=== PATIENT | female | born 1960 | race Caucasian/White ===

== ENCOUNTER 2019-09-08 22:09 | Emergency (ER) | payer MEDICARE, SELFPAY ==
[2019-09-08 22:09] VITALS: BP 136/72; PULSE 75; RESP 16; TEMP 36.6; BMI 37.0
--- NOTE | 2019-09-08 22:15 | ED.RN ---
CALLED FOR EKG, PULLED OLD EKGS FOR
--- NOTE | 2019-09-08 22:23 | EKG12_ITS ---
Test Reason : CP Blood Pressure : / mmHG Vent. Rate : 068 BPM Atrial Rate : 068 BPM P-R Int : 158 ms QRS Dur : 082 ms QT Int : 402 ms P-R-T Axes : 051 046 046 degrees QTc Int : 427 ms Normal sinus rhythm Normal ECG Confirmed by SANDRA WARNER, FITO ([id number]), science editor MICHAEL CAPONE ([id number]) on 09/10/2019 11:21:02 AM Referred By: DR DUNN Confirmed By:FITO FLORES MD
--- NOTE | 2019-09-08 22:25 | RAD_ITS ---
STUDY: X-RAY CHEST REASON FOR EXAM: Female, 59 years old. Jaw tightness. Heart fluttering. TECHNIQUE: Frontal chest. COMPARISON: None. FINDINGS: No apparent pneumothorax, pneumonia, pleural effusion, or edema. Cardiac silhouette, vianney and mediastinal contours are within normal limits. No acute osseous abnormality. No evidence of free air under the diaphragm. Lumbar spine fusion hardware partially visible. RAD/Chest 1 View (Portable) IMPRESSION: Negative chest radiograph. Electronically Signed: Ovidio Skinner, at 22:41 EST Tel , Service support ,
--- NOTE | 2019-09-08 22:36 | ED.DCSUM_ITS ---
History of Present Illness Chief Complaint: Chest Pain Informant: Patient Onset: Days Context: Gradual Onset Timing: Intermittent Current Severity: Moderate Maximum Severity: Moderate Narrative: The patient is a 59-year-old female with medical history significant for atrial fibrillation who presents to the emergency department with chest pain, palpitations, neck tightness. She states over the past 3 days, she has been having chest tightness especially when she exerts herself. She states at times, it will feel like it radiates up into her neck. She feels like her pain has been waxing and waning. She does describe some nausea with it. The patient is on flecainide. She denies any fevers or chills. She states she has had a remote stress test but no history of coronary vascular disease. Prior similar symptoms: No Recent Illness/Hospitalization: No Past Medical History - Allergies and Home Meds Allergies/Adverse Reactions: Allergies No Known Allergies Allergy (Verified 03/05/15 19:08) Primary Care Physician: Chun Santana DO [Primary Care Provider] - Prior records reviewed: Yes Past Medical History: - - Atrial fibrillation, hypertension Surgical History: noncontributory Smoking Status: Never smoker Review of Systems General: Denies: Chills, Fever, Sweats Eyes: Denies: Visual changes - bilaterally, Diplopia ENT: Denies: Rhinorrhea, Sore throat Cardiovascular: Reports: Chest pain. Denies: Palpitations Respiratory: Reports: Dyspnea. Denies: Cough, Dyspnea on exertion Gastrointestinal: Denies: Abdominal pain, Nausea, Vomiting, Diarrhea, Melena, Hematochezia Genitourinary: Denies: Dysuria, Hematuria, Frequency Musculoskeletal: Denies: Back pain, Extremity Pain Skin: Denies: Rash, Wounds Neurological: Denies: Headache, Weakness, Numbness Physical Exam Vital Signs/Narrative: Vital Signs Temp Pulse Resp BP 09/08/19 22:09 98 F 75 16 136/72 H Inital Vital Signs reviewed: Yes General: Well nourished, Well developed, No Acute Distress Head: Normocephalic, Atraumatic Eyes: Perrl, EOMI ENT: Moist mucous membranes, No rhinorrhea Neck: Supple, Nontender Cardiovascular: Regular rate, Regular rhythm, No murmurs Respiratory: No distress, CTA bilaterally, Chest nontender Abdomen: Soft, Nontender, Nondistended, Normal bowel sounds Back: Nontender, Normal Inspection Extremities: Nontender, No edema Skin: Normal color, No rash Neurological: Alert, Oriented x3, Cranial nerves II-XII grossly intact, Normal Strength, Normal Sensation Psychological: Normal affect, Normal Mood Diagnostic/Tx/Re-eval Chest X-Ray - ED: 1 View, Normal, Heart, Lungs, Mediastinum - Rhythm Strip Rhythm Strip: Sinus Rhythm Rate: 80 Ectopy: PVC(s), PAC(s) - EKG Initial EKG Interpretation: Sinus Rhythm, No Acute Injury Pattern Prior: Unchanged - Medical Decision Making The patient presents to the emergency department with intermittent chest pain made worse with exertion. She is felt a fluttering and tightness in her neck. EKG was obtained which showed sinus rhythm without acute ischemia. Chest x-ray was unremarkable. Cardiac enzymes were negative. On reevaluation, the patient is pain-free. Her story is suspicious for cardiac disease. She says of exertional dyspnea and shortness of breath. I do feel that she would benefit from observation for cardiac rule out. The patient was discussed with the hospitalist. The impression 1. Chest pain The patient had been discussed with the hospitalist and ready to be admitted. However, her stay was in observation. She states that she cannot pay for this. I did discuss with her the benefits of staying. However, she states that she c annot stay. The patient will be signed out AGAINST MEDICAL ADVICE, but will return with any worsening symptoms. ED Disposition - Plan for ED Patient: Instructions: CHEST PAIN, Uncertain Cause Referrals: Chun Santana DO [Primary Care Provider] -
[2019-09-08 22:39] VITALS: BP 117/65; PULSE 64; RESP 13; O2SAT 96
[2019-09-08 22:41] VITALS: O2SAT 99
[2019-09-08 22:48] LABS: Absolute Lymphocyte Count 2.66 X10^3/uL (0.83-4.51); Absolute Neutrophil Count 4.2 X10^3/uL (2.0-7.7); Basophil# 0.03 X10^3/uL; Basophil% 0.4 % (0-1); Eosinophil# 0.43 X10^3/uL; Eosinophils% 5.2 % (0-5); Hematocrit 32.7 % (37-47); Hemoglobin 10.2 g/dL (12.0-15.0); Lymphocyte # 2.66 X10^3/ul (4.0); Lymphocyte % 31.9 % (19-41); Mean Corp Hgb Conc 31.2 g/dL (32-36); Mean Corpuscular Hgb 26.8 pg (27.0-32.0); Mean Corpuscular Volume 85.8 fL (81-99); Mean Platelet Vol. 9.5 fl (6.2-12.0); Monocyte# 1.01 X10^3/uL; Monocyte% 12.1 % (0-10); NRBC Flagged by Analyzer 0 % (0-5); Neutrophil # 4.17 X10^3/uL (2.7-7.7); Platelet Count 231 K/mm3 (150-450); RBC Distribution Width CV 13.2 % (11.6-14.6); RBC Distribution Width SD 41.4 fl (35.1-43.9); Red Blood Count 3.81 M/mm3 (4.2-5.4); White Blood Count 8.3 K/mm3 (4.4-11.0)
[2019-09-08] MEDS: 0.9% Normal Saline 1,000 ML 150 ML IV (22:49)
[2019-09-08 23:04] LABS: Anion Gap 7 (5-15); BUN 31 mg/dL (7-18); BUN/Creat Ratio 32.7 RATIO (10-20); Calcium,Total 8.5 mg/dL (8.5-10.1); Chloride 108 mmol/L (98-107); Creatinine, Serum 0.95 mg/dL (0.55-1.02); EST Glomerular Filtration Rate 64 mL/min (>60); Est Glom Filt Rate - Afr Amer 78 mL/min (>60); Estimated Creatinine Clearance 55.06 ml/min; Glucose 91 mg/dL (74-106); Magnesium 2.2 mg/dL (1.6-2.6); Potassium 3.9 mmol/L (3.5-5.1); Sodium Level 142 mmol/L (136-145)
--- NOTE | 2019-09-08 23:17 | PCM.HP.STD ---
History of Present Illness The patient is a 59 year old F [] Past Medical History Allergies No Known Allergies Allergy (Verified 03/05/15 19:08) Home Medications: Ambulatory Orders Medication Instructions Recorded Aspirin [Aspirin, Baby] 325 mg PO DAILY@0800 11/14/13 Pindolol [Pindolol (Beta Fermin)] 5 mg PO DAILY 11/14/13 Fluoxetine [Prozac] 20 mg PO DAILY 03/05/15 Pravastatin Sodium 09/08/19 buPROPion tablets [Wellbutrin 100 mg PO DAILY 09/08/19 tablets] Surgical History: noncontributory Smoking Status: Former smoker - Physical Exam Vitals/I&O's: Vital Signs Temp Pulse Resp BP Pulse Ox 98 F 64 13 117/65 99 09/08/19 22:09 09/08/19 22:39 09/08/19 22:39 09/08/19 22:39 09/08/19 22:41 Oxygen Delivery Method Room Air Weight: 98 kg Body Mass Index (BMI) 37.0 Laboratory Results 09/08/19 22:35: WBC 8.3, RBC 3.81 L, Hgb 10.2 L, Hct 32.7 L, MCV 85.8, MCH 26.8 L, MCHC 31.2 L, RDW Std Deviation 41.4, RDW Coeff of Grant 13.2, Plt Count 231, MPV 9.5, Immature Gran % (Auto) 0.400, Neut % (Auto) 50.0, Lymph % (Auto) 31.9, Morehouse % (Auto) 12.1 H, Eos % (Auto) 5.2 H, Baso % (Auto) 0.4, Absolute Neuts (auto) 4.2, Absolute Lymphs (auto) 2.66, Nucleated RBC % 0 09/08/19 22:35: Sodium 142, Potassium 3.9, Chloride 108 H, Carbon Dioxide 27.0, Anion Gap 7, BUN 31 H, Creatinine 0.95, Estim Creat Clear Calc 55.06, Est GFR (MDRD) Af Amer 78, Est GFR (MDRD) Non-Af 64, BUN/Creatinine Ratio 32.7 H, Glucose 91, Calcium 8.5, Magnesium 2.2, Troponin I < 0.015 Current Medications Sodium Chloride () 1,000 mls @ 150 mls/hr IV .[id number] [facility] Last Admin: 09/08/19 22:49 Dose: 150 mls/hr Documented by:
[2019-09-08 23:40] VITALS: BP 111/72; PULSE 72; RESP 18; O2SAT 97
--- NOTE | 2019-09-08 23:52 | ED.RN ---
pt leaving [facility], states that they can not afford a hospital stay.
[2019-09-08 23:53] VITALS: BP 111/72; PULSE 71; RESP 21; O2SAT 97
== END 2019-09-08 23:59 | disposition home or self-care (01) ==
PROVIDERS: Emergency Provider Emergency Medicine; Family Provider Student in an Organized Health Care Education/Training Program; PCP Student in an Organized Health Care Education/Training Program
DX: R07.9 Chest pain, unspecified (principal); I10 Essential (primary) hypertension; I48.91 Unspecified atrial fibrillation
CPT/HCPCS: 71045; 80048; 83735; 84484; 85025; 93005; 96360; 99285; J7030; A4216

== ENCOUNTER 2021-02-17 19:02 | Emergency (ER) | payer MEDICARE, SELFPAY ==
[2021-02-17 19:03] VITALS: BP 140/72; PULSE 70; RESP 18; TEMP 36.6; O2SAT 99; BMI 33.5
--- NOTE | 2021-02-17 19:06 | RAD_ITS ---
STUDY: X-RAY - CERVICAL SPINE REASON FOR EXAM: Female, 60 years old. PAIN TECHNIQUE: 3 view(s) of the cervical spine were obtained. COMPARISON: None FINDINGS: Normal anterior atlantoaxial articulation. Normal odontoid process. There is straightening of the normal cervical lordosis. No demonstrated fracture. Vertebral bodies are well maintained. 2 mm retrolisthesis at C5-6, associated with mild disc space narrowing. Mild disc space narrowing at C4-5 and C6-7. The soft tissue structures are unremarkable. RAD/Cerv Spine 2 or 3 Views IMPRESSION: 1. No evidence of cervical trauma. 2. Mild C5-6 retrolisthesis. 3. Mild degenerative changes of the cervical spine. Electronically Signed: Ora Daily MD at 20:21 EDT Tel , Service support ,
--- NOTE | 2021-02-17 19:06 | RAD_ITS ---
STUDY: X-RAY - RIGHT SHOULDER REASON FOR EXAM: Female, 60 years old. PAIN TECHNIQUE: 4 view(s) of the shoulder. COMPARISON: None. FINDINGS: Normal glenohumeral articulation. Normal acromioclavicular joint. Normal acromion. Normal humeral head and visualized proximal humerus. The soft tissue structures are unremarkable. Normal visualized pulmonary apex. RAD/Shoulder min 2 Views IMPRESSION: Normal x-ray examination of the shoulder. Electronically Signed: Ora Daily MD at 20:18 EDT Tel , Service support ,
--- NOTE | 2021-02-17 20:00 | EDS_ITS ---
HPI History of Present Illness Chief Complaint: Upper Extremity Injury Informant: patient Onset/Context/Timing Onset: Today Context: Gradual Onset Timing: Continuous Quality of Pain: Aching and Throbbing Current Severity: Moderate Maximum Severity: Moderate Associated Symptoms Associated Symptoms: Negative for Parasthesia and Weakness Narrative Narrative: The patient is a 60-year-old female who presents to the emergency department with upper back pain. The patient was in her normal state of health. She states that she was trying to lead her horse. She states the horse pulled and she felt a little tightness in her upper back. She states since then, the pain is gotten worse. She states she feels like her neck is tight and is hard to move. She denies any numbness or tingling in the hand. She did not fall. S he did not strike her head. Prior similar symptoms: No Recent Illness/Hospitalization: No PFSH PFSH Home Medications aspirin 325 mg PO DAILY@0800 11/14/13 [History Last Taken Unknown] pindolol 5 mg PO DAILY 11/14/13 [History Last Taken Unknown] fluoxetine 20 mg PO DAILY 03/05/15 [History Last Taken Unknown] bupropion HCl 100 mg PO DAILY 09/08/19 [History Last Taken Unknown] pravastatin 09/08/19 [History Last Taken Unknown] cyclobenzaprine 10 mg PO TID PRN #20 tablet 02/17/21 [Rx Last Taken Unknown] naproxen 500 mg PO BID #20 tab 02/17/21 [Rx Last Taken Unknown] Allergy/AdvReac Type Severity Reaction Status Date / Time No Known Allergies Allergy Verified 02/17/21 19:05 Social History Smoking Status: Former smoker ROS ROS ED Constitutional Constitutional ED: Denies chills or fever(s) Eyes Eyes: Denies blurry vision or change in vision ENT ENT ED: Denies ear pain or sore throat Cardiovascular Cardiovascular: Denies chest pain or palpitations Respiratory/Chest Respiratory/Chest: Denies cough, dyspnea or dyspnea on exertion Gastrointestinal Gastrointestinal: Denies abdominal pain, nausea or vomiting Genitourinary Genitourinary ED: Denies dysuria or urinary frequency Musculoskeletal Musculoskeletal: Reports myalgias and neck pain; Denies arthralgias Integumentary Denies rash Neurologic Neurologic: Denies headache(s) or paresthesias Psychiatric Psychiatric: Denies anxiety or depression Endocrine Endocrinology: Denies polydipsia or polyuria Allergic/Immunologic Allergic/Immunologic ED: Denies urticaria EXAM Physical Exam Const Vital Signs: 02/17/21 19:03 Temperature 97.9 F Temperature Source Temporal Pulse Rate 70 Respiratory Rate 8 L Blood Pressure 140/72 H Blood Pressure Mean 94 Pulse Ox 99 Oxygen Delivery Method Room Air Positive well nourished and well developed General Appearance ED: well developed HEENT Reports normocephalic, head/scalp atraumatic and moist mucous membranes Eyes PERRL and EOMs intact bilaterally Neck no lymphadenopathy and supple Neck Narrative: Tenderness in the right paraspinal musculature. No midline tenderness. No step-off. Mild tenderness in the trapezius muscle. No pain in the shoulder with passive range of motion. Normal axillary nerve. General: tenderness Chest Wall inspection of chest normal Resp normal respiratory effort and clear to auscultation bilaterally Cardio regular rate, regular rhythm and no murmurs GI normal to inspection, nondistended, normoactive bowel sounds Palpation: Negative for tender, guarding or rebound tenderness present Back/Spine no CVA tenderness Cervical Spine: Negative for cervical spine tenderness Thoracic Spine / Upper Back: Negative for thoracic spinal tenderness Extremity normal to inspection General Extremety ED: Negative for tenderness Neuro oriented x3 and CN's II-XII intact bilaterally Neuro Narrative: No focal deficits appreciated. Sensorium / Orientation: alert Psych mental status grossly normal Skin no rashes or lesions noted, no wounds and skin turgor normal MDM MDM MDM Narrative Medical decision making narrative: The patient symptoms do seem muscular in nature. However, given her age we did obtain plain films. X-rays of the cervical spine and of the shoulder were obtained. These reviewed by both myself and the radiologist. There is no evidence of fracture dislocation. She does h ave some degenerative change. She did not want analgesics for her pain. She was given Toradol and Norflex with some improvement. At this point, I will treat the patient conservatively with antispasmodics and anti-inflammatories. She is comfortable with this plan of care. Impression 1. Right cervical and trapezius strain Discharge Plan Triage Chief Complaint: Upper Extremity Injury ED Provider: Enrique Mata Dx/Rx/DC Orders Instructions: ED Neck Sprain or Strain Prescriptions: New cyclobenzaprine [cyclobenzaprine] 10 MG tablet 10 mg PO TID PRN (Reason: Muscle Spasm) Qty: 20 RF: 0 naproxen 500 MG tablet 500 mg PO BID Qty: 20 RF: 0 No Action pindolol 10 MG tablet 5 mg PO DAILY RF: 0 aspirin 81 MG tablet,chewable 325 mg PO DAILY@0800 RF: 0 fluoxetine 20 MG capsule 20 mg PO DAILY RF: 0 pravastatin 40 MG tablet RF: 0 bupropion HCl 100 MG tablet 100 mg PO DAILY RF: 0 Primary Care Provider: Chun Santana Referrals: Chun Santana DO [Primary Care Provider] -
[2021-02-17] MEDS: Ketorolac 60 MG/2 ML Vial IM (20:19)
[2021-02-17] MEDS: Orphenadrine 60 MG/2 ML Ampul IM (20:21)
== END 2021-02-17 21:14 | disposition home or self-care (01) ==
LOC: ED 20:02
PROVIDERS: Emergency Provider Emergency Medicine; PCP Student in an Organized Health Care Education/Training Program
DX: S29.012A Strain of muscle and tendon of back wall of thorax, initial encounter (principal); Z87.891 Personal history of nicotine dependence; X58.XXXA Exposure to other specified factors, initial encounter
CPT/HCPCS: 72040; 73030; 96372; 99282

== ENCOUNTER 2021-05-31 11:08 | Emergency (ER) | payer MEDICARE, SELFPAY ==
[2021-05-31 11:09] VITALS: BP 83/53; PULSE 73; RESP 18; TEMP 36.6; O2SAT 98; BMI 33.5
[2021-05-31 11:12] VITALS: BP 83/53; PULSE 73; RESP 18; TEMP 36.6; O2SAT 98
--- NOTE | 2021-05-31 11:33 | EX.ED.DYSGE1 ---
HPI History of Present Illness Chief Complaint: Syncope Informant: patient Narrative Narrative: 60-year-old female presented to the emergency department with a near syncopal event. Patient states that she is coming down the stairs began to have the urge that she needed to have a bowel movement. She states she got lightheaded sweaty tingling in her arms and hands. She eventually had a bowel movement and her symptoms improved. She states that past couple days she has not felt very well. She has developed a slight cough with some occasional yellow sputum. No reported fevers. She spent most of the day in bed yesterday did not eat or drink very much. Patient is unvaccinated for [facility] Medical History Atrial fibrillation High cholesterol Home Medications aspirin 325 mg PO DAILY@0800 11/14/13 [History Last Taken Unknown] pindolol 5 mg PO DAILY 11/14/13 [History Last Taken Unknown] fluoxetine 20 mg PO DAILY 03/05/15 [History Last Taken Unknown] bupropion HCl 100 mg PO DAILY 09/08/19 [History Last Taken Unknown] pravastatin 09/08/19 [History Last Taken Unknown] cyclobenzaprine 10 mg PO TID PRN #20 tablet 02/17/21 [Rx Last Taken Unknown] naproxen 500 mg PO BID #20 tab 02/17/21 [Rx Last Taken Unknown] Allergy/AdvReac Type Severity Reaction Status Date / Time No Known Allergies Allergy Verified 05/31/21 11:11 Social History (Updated 05/31/21 @ 11:[address] Drew Salter DO) Smoking Status: Former smoker substance use type: does not use ROS ROS ED ROS Narrative Near syncope tingling in arms diaphoresis Constitutional Constitutional ED: Denies chills or weight loss Eyes Eyes: Denies change in vision or diplopia ENT ENT ED: Denies ear pain, rhinorrhea or sore throat Cardiovascular Cardiovascular: Denies chest pain, orthopnea, palpitations or racing heartbeat Respiratory/Chest Respiratory/Chest: Reports cough and sputum; Denies dyspnea or orthopnea Gastrointestinal Gastrointestinal: Denies abdominal pain, diarrhea, nausea or vomiting Genitourinary Genitourinary ED: Denies dysuria, hematuria or urinary frequency Musculoskeletal Musculoskeletal: Denies arthralgias or myalgias Integumentary Denies abscess or rash Neurologic Neurologic: Denies headache(s) or weakness Psychiatric Psychiatric: Denies anxiety, depression, suicidal ideation or suicidal thoughts Endocrine Endocrinology: Denies polydipsia, polyphagia or polyuria Allergic/Immunologic Allergic/Immunologic ED: Denies mouth swelling, tongue swelling or urticaria EXAM Physical Exam Const Vital Signs: 05/31/21 11:09 05/31/21 11:12 05/31/21 11:20 Temperature 98 F 98 F Temperature Source Temporal Temporal Pulse Rate 73 73 Respiratory Rate 18 18 Respiratory Effort Non-Labored Short of Breath Respiratory Pattern Normal Blood Pressure 83/53 L 83/53 L Blood Pressure Mean 63 63 Pulse Ox 98 98 Oxygen Delivery Method Room Air Room Air 05/31/21 12:16 Temperature Temperature Source Pulse Rate 66 Respiratory Rate 18 Respiratory Effort Respiratory Pattern Blood Pressure 125/81 H Blood Pressure Mean 95 Pulse Ox 96 Oxygen Delivery Method Room Air Positive well nourished and well developed General Appearance ED: well developed HEENT Reports normocephalic, head/scalp atraumatic and moist mucous membranes Eyes PERRL and EOMs intact bilaterally Neck no lymphadenopathy, supple and no JVD Resp normal respiratory effort and clear to auscultation bilaterally Cardio regular rate, regular rhythm and no murmurs GI normal to inspection, nondistended, normoactive bowel sounds and non-tender Palpation: soft Back/Spine no CVA tenderness and normal ROM Extremity normal to inspection General Extremety ED: Negative for edema General Extremity: Negative for edema Neuro oriented x3 and CN's II-XII intact bilaterally Sensorium / Orientation: alert Motor Exam: strength 5/5 throughout Psych mental status grossly normal Mood & Affect: Negative for depressed or tearful Skin no rashes or lesions noted and no wounds MDM MDM MDM Narrative Medical decision making narrative: My impression of the chest x-ray is no acute process. Patient received a liter of IV fluids. Her Covid test is positive. Patient will be referred for monoclonal antibodies as she is 60 years old with a history of atrial fibrillation. Patient return if worsening or concerns EKG Initial EKG: Attestation: I personally reviewed and interpreted this EKG as follows: Comments: EKG demonstrates a normal sinus rhythm at a rate of 69 bpm. Discharge Plan Triage Chief Complaint: Syncope ED Provider: Drew Salter Dx/Rx/DC Orders Clinical Impression: Vasovagal near syncope, COVID-19 Instructions: Coronavirus Disease 2019 (COVID-19): Caring for Yourself or Others, ED Near-Fainting- Vagal Reaction Prescriptions: No Action pindolol 10 MG tablet 5 mg PO DAILY RF: 0 aspirin 81 MG tablet,chewable 325 mg PO DAILY@0800 RF: 0 fluoxetine 20 MG capsule 20 mg PO DAILY RF: 0 pravastatin 40 MG tablet RF: 0 bupropion HCl 100 MG tablet 100 mg PO DAILY RF: 0 cyclobenzaprine [cyclobenzaprine] 10 MG tablet 10 mg PO TID PRN (Reason: Muscle Spasm) Qty: 20 RF: 0 naproxen 500 MG tablet 500 mg PO BID Qty: 20 RF: 0 Other Ambulatory Orders: COVID Outpatient Monoclonal Antibody Referral (Routine) Location: None Selected Ordered By: Dr. Drew Salter Primary Care Provider: Chun Santana Referrals: Chun Santana DO [Primary Care Provider] - As Needed Disposition Disposition: Home, Self Care
--- NOTE | 2021-05-31 11:38 | EKG12_ITS ---
Test Reason : Blood Pressure : / mmHG Vent. Rate : 069 BPM Atrial Rate : 069 BPM P-R Int : 166 ms QRS Dur : 078 ms QT Int : 416 ms P-R-T Axes : 020 058 032 degrees QTc Int : 445 ms Normal sinus rhythm Low voltage QRS T wave abnormality, consider anterior ischemia Abnormal ECG Confirmed by PAUL WARNER, ZACK ([id number]), content editor VIANCA RICE ([id number]) on 06/01/2021 10:13:56 AM Referred By: KATHERINE Confirmed By:ZACK MILLER MD
[2021-05-31] MEDS: 0.9% Normal Saline 1,000 ML 1000 ML IV (11:46)
[2021-05-31 12:16] VITALS: BP 125/81; PULSE 66; RESP 18; O2SAT 96
--- NOTE | 2021-05-31 12:21 | RAD_ITS ---
STUDY: X-RAY CHEST REASON FOR EXAM: Female, 60 years old. Cough TECHNIQUE: Single AP portable view of the chest. COMPARISON: Comparison is made with prior study dated 09/08/2019. FINDINGS: EKG electrodes are seen. Hyperinflation. The lungs are clear. There is no demonstrated pleural abnormality. Normal size heart. Normal mediastinum and vianney. Normal visualized pulmonary arteries. Normal visualized aortic arch and descending thoracic aorta. Screw and bel fixation of the lower thoracic and lumbar spine. Normal visualized ribs, clavicles, and shoulders. Small hiatal hernia. RAD/Chest 1 View (Portable) IMPRESSION: Hyperinflation. The lungs are clear. Electronically Signed: Cayden Marroquin MD at 12:54 EDT , Service support ,
[2021-05-31 13:40] VITALS: BP 148/72; PULSE 90; RESP 20; O2SAT 95
== END 2021-05-31 13:43 | disposition home or self-care (01) ==
PROVIDERS: Emergency Provider Emergency Medicine; PCP Student in an Organized Health Care Education/Training Program
DX: R55 Syncope and collapse (principal); U07.1 COVID-19; Z87.891 Personal history of nicotine dependence; E78.00 Pure hypercholesterolemia, unspecified; I48.91 Unspecified atrial fibrillation
CPT/HCPCS: 71045; 87426; 93005; 96360; 99284; J7030; A4216

== ENCOUNTER 2021-10-18 08:14 | Emergency (ER) | payer MEDICARE, SELFPAY ==
[2021-10-18 08:16] VITALS: BP 127/71; PULSE 74; RESP 16; TEMP 35.7; O2SAT 99; BMI 34.9
--- NOTE | 2021-10-18 08:29 | EDS_ITS ---
HPI History of Present Illness Chief Complaint: Chest Other Detail of Chief Complaint: Right posterior lateral rib cage pain Informant: patient Onset/Context/Timing Onset: Today and Hours Activity at onset: gradual Timing: Continuous Quality: Positive for Sharp and Stabbing Current Severity: Mild Maximum Severity: Moderate Worsened By: Movement of Torso and Breathing Relieved By: Remaining Still Associated Symptoms: Negative for Nausea, Vomiting, Diaphoresis, Dyspnea, Cough, Fever, Lightheadedness, Acid Reflux and Palpitations Narrative Narrative: 61-year-old female history of A. fib and high cholesterol. States she twisted yesterday and this morning she has had right posterior lateral rib cage pain. Denies any falls or trauma. No history of prior DVT or PE. No recent risk factors. No travel, surgery nor hospitalization. No hemoptysis. Hurts more with movement and deep breathing. She denies any shortness of breath. Prior Similar Symptoms: Yes Recent Illness/Hospitalization: No PE Risk Factors: Negative for Recent Travel/Surgery, Recent Immobilization, Prior DVT or PE, Cancer and OCP + Smoking + >/=35 TAD Risk Factors: Negative for Marfan's Syndrome PFSH [facility] Medical History Atrial fibrillation High cholesterol Home Medications aspirin 325 mg PO DAILY@0800 11/14/13 [History Last Taken Unknown] pindolol 5 mg PO DAILY 11/14/13 [History Last Taken Unknown] fluoxetine 20 mg PO DAILY 03/05/15 [History Last Taken Unknown] bupropion HCl 100 mg PO DAILY 09/08/19 [History Last Taken Unknown] pravastatin 09/08/19 [History Last Taken Unknown] cyclobenzaprine 10 mg PO TID PRN #20 tablet 02/17/21 [Rx Last Taken Unknown] naproxen 500 mg PO BID #20 tab 02/17/21 [Rx Last Taken Unknown] Allergy/AdvReac Type Severity Reaction Status Date / Time acetaminophen [From Vicodin] AdvReac Upset Verified 10/18/21 08:15 Stomach codeine AdvReac Upset Verified 10/18/21 08:15 Stomach hydrocodone [From Vicodin] AdvReac Upset Verified 10/18/21 08:15 Stomach meperidine [From Demerol] AdvReac Upset Verified 10/18/21 08:15 Stomach Social History Smoking Status: Former smoker substance use type: does not use ROS ROS ED ROS Narrative Denies recent illness. No cough no shortness of breath. Review of Systems ROS Unobtainable: Denies due to encephalopathy Constitutional Constitutional ED: Denies fever(s) or subjective Eyes Eyes: Denies none or change in vision ENT ENT ED: Denies ear pain Cardiovascular Cardiovascular: Denies as per HPI, chest pain or palpitations Respiratory/Chest Respiratory/Chest: Denies cough or dyspnea Gastrointestinal Gastrointestinal: Denies abdominal pain, diarrhea, nausea or vomiting Genitourinary Genitourinary ED: Denies dysuria or hematuria Musculoskeletal Musculoskeletal: Denies arthralgias or myalgias Integumentary Denies rash Neurologic Neurologic: Denies headache(s) Psychiatric Psychiatric: Denies depression Endocrine Endocrinology: Denies polyuria Hematologic/Lymphatic Hematologic/Lymphatic: Denies easy bruising Allergic/Immunologic Allergic/Immunologic ED: Denies urticaria EXAM Physical Exam Narrative Exam Narrative: -year-old female no acute distress vital signs stable afebrile. Pulse ox 9 9% on room air no signs hypoxia. H EENT exam unremarkable. Neck nontender no lymphadenopathy. Lungs clear to auscultation bilaterally. Heart regular rhythm no murmur. Anterior chest wall nontender. Right lateral rib cage tenderness primarily in intercostals. No crepitance or subcu air. No rash nor bruising. No bony deformity. Left posterior rib cage nontender back otherwise nontender. Abdomen is soft and nontender. Normal bowel sounds no peritoneal signs. Moving all 4 extremities. Neurovascular intact. Calves are nontender without edema. Neurologically she is awake and alert with no focal motor deficits. Const Vital Signs: 10/18/21 08:16 10/18/21 11:17 Temperature 96.2 F L Temperature Source Temporal Pulse Rate 74 Respiratory Rate 16 Blood Pressure 127/71 H 177/100 H Blood Pressure Mean 89 125 Pulse Ox 99 Oxygen Delivery Method Room Air Positive well nourished and well developed; Negative for cachectic, contractures or unkempt General Appearance ED: well developed and NAD; Negative for unkempt, cachectic, contractures or pallor Nutritional Appearance: Negative for cachectic HEENT Reports moist mucous membranes normocephalic and atraumatic; Negative for trauma or tenderness Eyes PERRL and EOMs intact bilaterally Neck no lymphadenopathy, supple and no JVD General: Negative for tenderness Chest Wall inspection of chest normal and palpation of chest normal Chest Narrative: Right posterior rib cage tenderness. Normal appearance. No bruising. No crepitus. No subcu air. No bony deformity. No rash. Resp normal respiratory effort and clear to auscultation bilaterally Effort and Inspection: Negative for respiratory distress Auscultation: Negative for rales, rhonchi or wheezes Cardio regular rate, regular rhythm, S1 normal heart sound and S2 normal heart sound GI normal to inspection, nondistended, normoactive bowel sounds, soft to palpation, non-tender, non-distended and no masses Back/Spine no CVA tenderness and no thoracic nor lumbar tenderness General Back: Negative for CVA tenderness Cervical Spine: Negative for cervical spine tenderness Extremity normal to inspection General Extremety ED: Negative for edema or tenderness General Extremity: Negative for edema Neuro oriented x3 and CN's II-XII intact bilaterally Sensorium / Orientation: awake, alert, oriented to person, oriented to place and oriented to time Motor Exam: strength 5/5 throughout Psych mental status grossly normal Appearance: Negative for unkempt Attitude: No agitated Mood & Affect: Negative for depressed or tearful Skin no rashes or lesions noted and no wounds General Skin Exam: Negative for jaundice or pallor MDM MDM MDM Narrative Medical decision making narrative: 61-year-old with right posterior lateral rib cage pain after twisting. Consistent with a intercostal strain. X-ray being obtained to rule out rib fracture or pneumothorax. This does not sound cardiac. She has no risk factors no prior history of a PE. Repeat exam patient doing well at 11:50 AM. Will be discharged home. Tylenol Motrin for pain. Pillow to the area. If not improving follow-up. Radiography Chest X-Ray - ED: 2 View, Read by ED Physician, Heart, Lungs, Mediastinum, Bony Structures and No Acute Disease Diagnostic Testing: Clinical Impression(s) from Imaging Studies Chest X-Ray 10/18/21 08:58 IMPRESSION: No acute abnormality is seen. Electronically Signed: Cayden Marroquin MD at 9:24 EST , Service support , Acute chest x-ray, 2 views AP and lateral interpreted by myself shows no acute abnormality. Normal cardiac silhouette and mediastinum. Normal lungs. Normal bony structures. Discharge Plan Triage Chief Complaint: Chest Other ED Provider: Ronak Shelton Dx/Rx/DC Orders Clinical Impression: Chest wall muscle strain Instructions: ED Strain Chest Wall Prescriptions: No Action pindolol 10 MG tablet 5 mg PO DAILY RF: 0 aspirin 81 MG tablet,chewable 325 mg PO DAILY@0800 RF: 0 fluoxetine 20 MG capsule 20 mg PO DAILY RF: 0 pravastatin 40 MG tablet RF: 0 bupropion HCl 100 MG tablet 100 mg PO DAILY RF: 0 cyclobenzaprine [cyclobenzaprine] 10 MG tablet 10 mg PO TID PRN (Reason: Muscle Spasm) Qty: 20 RF: 0 naproxen 500 MG tablet 500 mg PO BID Qty: 20 RF: 0 Primary Care Provider: Chun Santana Referrals: Chun Santana DO [Primary Care Provider] - 1 Week if not improving Activity Restrictions/Additional Instructions: Motrin for pain and inflammation and Tylenol for pain. Ice to the area. Pillow to help brace the rib cage. Follow-up with your doctor if not improving. Disposition Disposition: Home, Self Care
[2021-10-18] MEDS: Ibuprofen 600 MG Tablet PO (08:45)
--- NOTE | 2021-10-18 08:58 | RAD_ITS ---
STUDY: X-RAY CHEST REASON FOR EXAM: Female, 61 years old. Right-sided rib pain following injury. TECHNIQUE: AP and lateral views of the chest. COMPARISON: Comparison is made with prior study dated 05/31/2021. FINDINGS: Elevation of the right hemidiaphragm. There is no demonstrated pleural abnormality. Normal size heart. Normal mediastinum and vianney. Normal visualized pulmonary arteries. Normal visualized aortic arch and descending thoracic aorta. There are degenerative changes of the visualized thoracic spine. Normal visualized ribs, clavicles, and shoulders. Moderate sized hiatal hernia. RAD/Chest PA and Lateral IMPRESSION: No acute abnormality is seen. Electronically Signed: Cayden Marroquin MD at 9:24 EST , Service support ,
[2021-10-18 11:17] VITALS: BP 177/100
[2021-10-18 12:19] VITALS: BP 118/69; PULSE 71; RESP 15; O2SAT 97
== END 2021-10-18 12:20 | disposition home or self-care (01) ==
PROVIDERS: Emergency Provider Emergency Medicine; PCP Student in an Organized Health Care Education/Training Program; Visit Provider Emergency Medicine
DX: S29.011A Strain of muscle and tendon of front wall of thorax, initial encounter (principal); I48.91 Unspecified atrial fibrillation; E78.00 Pure hypercholesterolemia, unspecified; Z87.891 Personal history of nicotine dependence; X50.1XXA Overexertion from prolonged static or awkward postures, initial encounter
CPT/HCPCS: 71046; 99282

== ENCOUNTER → 2022-04-24 | Outpatient (CLI) | payer MEDICARE, SELFPAY ==
[2022-04-24 13:04] VITALS: BP 112/55; RESP 14; TEMP 36.8; O2SAT 97; BMI 35.7
[2022-04-24] MEDS: 0.9% NaCl Peripheral Flush Adult/Peds IV (13:19)
[2022-04-24] MEDS: 0.9% NaCl IVPB Med Flush (250 mL) 15 ML IV (13:19)
[2022-04-24 14:26] VITALS: BP 111/64; PULSE 67; RESP 14; TEMP 36.4; O2SAT 100
== END | disposition home or self-care (01) ==
LOC: MEDOUTP 12:56
PROVIDERS: PCP Student in an Organized Health Care Education/Training Program; Referring Provider Internal Medicine Hematology & Oncology; Visit Provider Internal Medicine Hematology & Oncology
DX: D50.9 Iron deficiency anemia, unspecified (principal); Z78.9 Other specified health status
CPT/HCPCS: 96365; J1756; J7050; A4216

== ENCOUNTER → 2022-04-26 | Outpatient (CLI) | payer MEDICARE, SELFPAY ==
[2022-04-26] MEDS: 0.9% NaCl Peripheral Flush Adult/Peds IV (13:12)
[2022-04-26] MEDS: 0.9% NaCl IVPB Med Flush (250 mL) 15 ML IV (13:12)
[2022-04-26 13:19] VITALS: BP 116/53; PULSE 66; RESP 16; TEMP 36.3; O2SAT 99
== END | disposition home or self-care (01) ==
LOC: MEDOUTP 12:56
PROVIDERS: PCP Student in an Organized Health Care Education/Training Program; Referring Provider Internal Medicine Hematology & Oncology; Visit Provider Internal Medicine Hematology & Oncology
DX: D50.9 Iron deficiency anemia, unspecified (principal); Z78.9 Other specified health status
CPT/HCPCS: 96365; J1756; J7050; A4216

== ENCOUNTER → 2022-04-28 | Outpatient (CLI) | payer MEDICARE, SELFPAY ==
[2022-04-28] MEDS: 0.9% NaCl Peripheral Flush Adult/Peds IV (12:47)
[2022-04-28] MEDS: 0.9% NaCl IVPB Med Flush (250 mL) 15 ML IV (12:47)
[2022-04-28 12:55] VITALS: BP 110/66; PULSE 59; RESP 16; TEMP 36.2; O2SAT 97
== END | disposition home or self-care (01) ==
LOC: MEDOUTP 12:26
PROVIDERS: PCP Student in an Organized Health Care Education/Training Program; Referring Provider Internal Medicine Hematology & Oncology; Visit Provider Internal Medicine Hematology & Oncology
DX: D50.9 Iron deficiency anemia, unspecified (principal); Z78.9 Other specified health status
CPT/HCPCS: 96365; J1756; J7050; A4216

== ENCOUNTER → 2022-05-01 | Outpatient (CLI) | payer MEDICARE, SELFPAY ==
[2022-05-01 12:20] VITALS: BP 113/53; PULSE 68; RESP 14; TEMP 36.9; O2SAT 98; BMI 35.0
[2022-05-01] MEDS: 0.9% NaCl Peripheral Flush Adult/Peds IV (12:23)
[2022-05-01] MEDS: 0.9% NaCl IVPB Med Flush (250 mL) 15 ML IV (12:24)
[2022-05-01 13:03] VITALS: BP 113/61; PULSE 64; RESP 14; TEMP 36.8; O2SAT 97
== END | disposition home or self-care (01) ==
LOC: MEDOUTP 12:14
PROVIDERS: PCP Student in an Organized Health Care Education/Training Program; Referring Provider Internal Medicine Hematology & Oncology; Visit Provider Internal Medicine Hematology & Oncology
DX: D50.9 Iron deficiency anemia, unspecified (principal); Z78.9 Other specified health status
CPT/HCPCS: 96365; J1756; J7050; A4216

== ENCOUNTER → 2022-05-03 | Outpatient (CLI) | payer MEDICARE, SELFPAY ==
[2022-05-03] MEDS: 0.9% NaCl IVPB Med Flush (250 mL) 15 ML IV (12:43)
[2022-05-03] MEDS: 0.9% NaCl Peripheral Flush Adult/Peds IV (12:43)
[2022-05-03 12:45] VITALS: BP 109/57; PULSE 58; RESP 16; TEMP 36.6; O2SAT 99
== END | disposition home or self-care (01) ==
LOC: MEDOUTP 12:21
PROVIDERS: PCP Student in an Organized Health Care Education/Training Program; Referring Provider Internal Medicine Hematology & Oncology; Visit Provider Internal Medicine Hematology & Oncology
DX: D50.9 Iron deficiency anemia, unspecified (principal); Z78.9 Other specified health status
CPT/HCPCS: 96365; J1756; J7050; A4216

== ENCOUNTER 2022-05-26 08:06 | Day surgery (SDC) | payer MEDICARE, SELFPAY ==
[2022-05-26] VITALS (7 sets, daily range): BP systolic 109–126; BP diastolic 62–75; PULSE 55–76; RESP 16–18; TEMP 36.4–37; O2SAT 94–100; BMI 34.2
[2022-05-26] MEDS: Lactated Ringers 1,000 ML 15 ML IV (08:25)
--- NOTE | 2022-05-26 09:10 | PCM.HP.BLA ---
History and Physical Date of Admission: 05/26/22 Intake Vital Signs ? 04/24/2213:04 05/01/2210:10 Height 5 ft 3 in 5 ft 3 in Weight: ? 198 lb 8 oz BMI ? 35.2 BP ? 108/72 Blood Pressure Location ? Rt brachial Position ? Sitting Respiration ? 16 Pulse ? 63 Pulse Source ? Monitor Temp ? 97.7 F L Temp Source ? Temporal Pulse Oximetry (%) ? 99 Oxygen Delivery Method ? 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 Is patient in pain?: No Allergies codeine Adverse Reaction (Verified 05/01/22 10:11) Upset Stomachhydrocodone [From Vicodin] Adverse Reaction (Verified 05/01/22 10:11) Upset Stomachmeperidine [From Demerol] Adverse Reaction (Verified 05/01/22 10:11) Upset Stomach Medications pindolol 10 mg tablet 5 mg PO DAILY 11/14/13 [History Confirmed 05/01/22] pravastatin 40 mg tablet 80 mg PO QHS 09/08/19 [History Confirmed 05/01/22] cyclobenzaprine 10 mg tablet 10 mg PO TID PRN Muscle Spasm #20 TABLETS 02/17/21 [Rx Confirmed 05/01/22] flecainide 50 mg tablet 50 mg PO BID 04/24/22 [History Confirmed 05/01/22] PFSH Medical History? Atrial fibrillation High cholesterol Social History? Smoking Status:? Former smoker substance use type:? does not use HPI HPI HPI: CIARAN AGUILA, is a 61 F who presents to the office today for colonoscopy.? Patient has reported black tarry stools for a few months.? She had EGD 1 month ago which was normal.? Patient's last colonoscopy was about a year and a half ago and it did reveal polyps.? She is having some mild abdominal pain.? She reports the bloody stools been going on for least a month.? She was anemic on her last 2 hemoglobin draws in March of this year. ROS General General: No weight change, appetite, fatigue, colon cancer, breast cancer or weakness HEENT HEENT: No difficulty swallowing, eye injury, eye surgery, swollen glands or hoarseness Endo Endocrine: No thyroid disease, diabetes mellitus, thyroid cancer, Hair loss, heat intolerance or cold intolerance Skin Skin: No rash or changing moles Breast Breast: No left breast lump, right breast lump, nipple discharge, breast pain, abnormal mammogram, abnormal US or breast enlargement Musc Musculoskeletal: No back problems, arthritis, rheumatoid arthritis, gout or joint pain Cardio Cardiovascular: Yes atrial fibrillation; No murmur, pacemaker, heart disease, high blood pressure, heart attack, heart stent, palpitations, shortness of breat with exertion or chest pain Psych Psychiatric: No depression, anxiety or hearing voices Resp Respiratory: No shortness of breath, No sleep apnea, No cough, No COPD, No asthma, No emphysema and No wheezing Gastro Gastrointestinal: Yes abdominal pain, No nausea or vomiting, No diarrhea, No constipation, Yes blood in stool, No acid reflux, No hemorrhoids, No ulcers, No gallbladder problem and Yes black,tarry stools Flavio Hematologic: No blood thinners, No blood disorders, No bleeding, No anemia and No blood clots Neuro Neurologic: No system reviewed and no additional complaints, except as documented, No as per HPI, No abnormal gait, No abnormal hearing, No abnormal movements, No abnormal speech, No behavioral changes, No burning sensations, No confusion, No convulsions, No disequilibrium, No dizziness, No localized weakness, No frequent falls, No headache(s), No lack of coordination, No loss of vision, No memory loss, No numbness, No other visual disturbances, No radicular pain, No restless legs, No sensory deficit, No syncope, No tingling, No tremor(s), No weakness and No other Exam Const General: cooperative Orientation: alert and oriented x3 HENIL Head: normal to inspection Neck Neck: normal visual inspection and full ROM Chest Chest palpation & inspection: normal inspection of the chest Resp Effort & Inspection: normal respiratory effort Auscultation: clear to auscultation bilaterally Cardio Rate: regular rate Rhythm: regular rhythm GI Inspection: non-distended Palpation: soft and nontender Skin General: no rashes or lesions noted Neuro General: patient alert and patient oriented x3 Extrem General: full ROM Psych Appearance: grossly normal Mental Status: mental status grossly normal Assessment and Plan Assessment and Plan (1) Iron deficiency anemia: ?Status:?Acute ?Plan: Patient is here for iron deficiency anemia and black tarry stools.? I discussed colonoscopy with her.? She is trying to have a capsule endoscopy but this will not be approved until she has colonoscopy.? I discussed this with her and I discussed possible cauterization of AV malformations. I explained endoscopy in detail to the patient.? I explained the risks including but not limited to stroke or heart attack with anesthesia, perforation of the GI tract, bleeding, infection.? I explained that any of these could necessitate further emergency surgery.? The patient understands and all questions were answered sufficiently.? The patient wishes to proceed with procedure. Yordy Morales MD Pager: [facility] [address] [place] [address] [address] [place] [address] Office: I have re-examined the patient. There are no clinical changes since date of exam.
--- NOTE | 2022-05-26 09:40 | OP.COLON_ITS ---
Patient Name: Selam Prieto Procedure Date: 05/26/2022 9:15 AM Date of : 1960 Age: 61 Procedure: Colonoscopy Indications: Iron deficiency anemia Providers: Yordy Morales MD Medicines: Monitored Anesthesia Care Patient Profile: This is a 61 year old female. Refer to note in patient chart for documentation of history and physical. Last Colonoscopy: 3 years ago. Complications: No immediate complications. Procedure: Pre-Anesthesia Assessment: - Prior to the procedure, a History and Physical was performed, and patient medications and allergies were reviewed. The patient's tolerance of previous anesthesia was also reviewed. The risks and benefits of the procedure and the sedation options and risks were discussed with the patient. All questions were answered, and informed consent was obtained. Prior Anticoagulants: The patient has taken no previous anticoagulant or antiplatelet agents. After reviewing the risks and benefits, the patient was deemed in satisfactory condition to undergo the procedure. After I obtained informed consent, the scope was passed under direct vision. Throughout the procedure, the patient's blood pressure, pulse, and oxygen saturations were monitored continuously. The colonoscope was introduced through the anus and advanced to the cecum, identified by appendiceal orifice and ileocecal valve. The colonoscopy was performed without difficulty. The patient tolerated the procedure well. The quality of the bowel preparation was good. Scope In: 9:26:21 AM Scope Withdrawal Time 0 hours 5 minutes 30 seconds Scope Out: 9:37:53 AM Total Procedure Duration Time 0 hours 11 minutes 32 seconds Findings: The entire examined colon appeared normal on direct and retroflexion views. Impression: - The entire examined colon is normal on direct and retroflexion views. - No specimens collected. Recommendation: - Discharge patient to home. - Resume previous diet. - Continue present medications. - Repeat colonoscopy in 10 years for screening purposes. Procedure Code(s): --- Professional --- 22590, Colonoscopy, flexible; diagnostic, including collection of specimen(s) by brushing or washing, when performed (separate procedure) Diagnosis Code(s): --- Professional --- D50.9, Iron deficiency anemia, unspecified CPT copyright 2017 [employer]. All rights reserved. The codes documented in this report are preliminary and upon meter changes records clerk review may be revised to meet current compliance requirements. Yordy Morales MD 05/26/2022 9:39:55 AM This report has been signed electronically. Number of Addenda: 0 Note Initiated On: 05/26/2022 9:15 AM
--- NOTE | 2022-05-26 09:41 | OP.CCLET_ITS ---
05/26/2022 Chun Santana [address] [place] [address] Re : Colonoscopy procedure for Selam Prieto Dear Dr. Santana This procedure was performed on Thursday, May 26, 2022. My impressions and recommendations are as follows: Impressions : - The entire examined colon is normal on direct and retroflexion views. - No specimens collected. Recommendations : - Discharge patient to home. - Resume previous diet. - Continue present medications. - Repeat colonoscopy in 10 years for screening purposes. My findings are described in the full procedure note, which is enclosed. If I can be of further assistance, please feel free to contact me at Doctor phone number(s): , Work: . Sincerely, Yordy Morales MD 05/26/2022 9:39:55 AM This report has been signed electronically.
== END 2022-05-26 10:29 | disposition home or self-care (01) ==
LOC: EN 08:09 → AC 08:09
PROVIDERS: PCP Student in an Organized Health Care Education/Training Program; Referring Provider Student in an Organized Health Care Education/Training Program; Visit Provider Surgery
PROC: 0DJD8ZZ Inspection of Lower Intestinal Tract, Via Natural or Artificial Opening Endoscopic (ICD-10-PCS; CPT 45378; principal; 2022-05-26 09:10)
DX: D50.9 Iron deficiency anemia, unspecified (principal); Z87.891 Personal history of nicotine dependence
CPT/HCPCS: 45378; J7120; J2405

== ENCOUNTER 2022-06-05 09:30 | Emergency (ER) | payer MEDICARE, SELFPAY ==
[2022-06-05 09:32] VITALS: BP 107/85; PULSE 73; RESP 14; TEMP 36.4; O2SAT 98; BMI 33.8
--- NOTE | 2022-06-05 09:41 | EDS_ITS ---
HPI History of Present Illness Chief Complaint: Lower Extremity Injury Detail of Chief Complaint: Left foot pain Informant: patient Onset/Context/Timing Onset: Yesterday Context: Gradual Onset Current Severity: Moderate Maximum Severity: Moderate Narrative Narrative: Patient presents secondary left foot pain. She states pain started gradually last evening and worsened rather quickly. She had difficulty sleeping last night secondary to pain. She points to the left great toe and on the first metatarsal to the midfoot and describing her area of pain. She has not taken anything for pain. She denies any known injury, but states she was going up and down steps a lot yesterday and had some sandals on that crisscrossed over the distal foot near the area of pain. She is not sure if this is related to her pain today. She denies history of gout. No prior foot surgery. [facility] Medical History Alcohol use Anemia Anxiety Atrial fibrillation Back pain Cardiology follow-up encounter CPAP (continuous positive airway pressure) dependence Degenerative disc disease Depression High cholesterol History of edema History of hiatal hernia History of stress test Sleep apnea Home Medications pindolol 10 mg tablet 5 mg PO DAILY 11/14/13 [History Last Taken 05/24/22] pravastatin 40 mg tablet 80 mg PO QHS 09/08/19 [History Last Taken 05/24/22] cyclobenzaprine 10 mg tablet 10 mg PO TID PRN Muscle Spasm #20 TABLETS 02/17/21 [Rx Last Taken 05/24/22] flecainide 50 mg tablet 50 mg PO DAILY 04/24/22 [History Last Taken 05/24/22] cholecalciferol (vitamin D3) 25 mcg (1,000 unit) tablet (Vitamin D3) 25 mcg PO DAILY 05/22/22 [History Last Taken 05/24/22] naproxen 500 mg tablet (Naprosyn) 500 mg PO BID PRN pain #10 tabs 06/05/22 [Rx Last Taken Unknown] prednisone 20 mg tablet 20 mg PO BID #6 tabs 06/05/22 [Rx Last Taken Unknown] Allergy/AdvReac Type Severity Reaction Status Date / Time codeine AdvReac Upset Verified 06/05/22 09:33 Stomach hydrocodone [From Vicodin] AdvReac Upset Verified 06/05/22 09:33 Stomach meperidine [From Demerol] AdvReac Upset Verified 06/05/22 09:33 Stomach Surgical History Hx of esophagogastroduodenoscopy Social History Smoking Status: Former smoker substance use type: does not use ROS ROS ED Constitutional Constitutional ED: Denies chills or fever(s) Eyes Eyes: Denies change in vision or discharge from eye(s) ENT ENT ED: Denies discharge from eye(s), rhinorrhea or sore throat Cardiovascular Cardiovascular: Denies chest pain or palpitations Respiratory/Chest Respiratory/Chest: Denies cough or dyspnea Gastrointestinal Gastrointestinal: Denies abdominal pain, diarrhea, nausea or vomiting Genitourinary Genitourinary ED: Denies difficulty urinating or dysuria Musculoskeletal Musculoskeletal: Reports extremity pain; Denies back pain Integumentary Denies Abrasions or rash Neurologic Neurologic: Denies headache(s) or weakness Allergic/Immunologic Allergic/Immunologic ED: Denies lip swelling or urticaria EXAM Physical Exam Const Vital Signs: 06/05/22 09:32 Temperature 97.5 F L Temperature Source Temporal Pulse Rate 73 Respiratory Rate 14 Blood Pressure 107/85 H Blood Pressure Mean 92 Pulse Ox 98 Oxygen Delivery Method Room Air Positive well nourished and well developed General Appearance ED: well developed HEENT Reports normocephalic and head/scalp atraumatic Eyes PERRL and EOMs intact bilaterally Neck supple Chest Wall inspection of chest normal and palpation of chest normal Resp normal respiratory effort and clear to auscultation bilaterally Cardio regular rate and regular rhythm GI normal to inspection, nondistended, normoactive bowel sounds Palpation: soft Extremity Extremity Narrative: Mild general edema to the left foot. No erythema. Tenderness to the left great toe and distal aspect of the first metatarsal. No ecchymosis or abrasions. Neuro oriented x3 and no sensory deficits noted Sensorium / Orientation: alert Motor Exam: strength 5/5 throughout Psych mental status grossly normal Skin no rashes or lesions noted MDM MDM MDM Narrative Medical decision making narrative: Patient given Naprosyn for pain. Left foot x-rays obtained. Radiography Diagnostic Testing: Clinical Impression(s) from Imaging Studies Foot X-Ray 06/05/22 09:45 IMPRESSION: Soft tissue swelling. Plantar spur. Electronically Signed: Cayden Marroquin MD at 10:23 EDT , Treatment and Re-Evaluation Narrative: Left foot x-ray per my interpretation reveals no acute fracture. Radiology interpretation is reviewed and agrees. Arun wrap applied to the left foot. My suspicion is that she is a deep bruise from her increased activity yesterday and different shoes. I do not see focal tenderness over the first MTP joint or erythema that would make me believe this is gout. She was advised if this develops she needs to be reevaluated. Patient will be given Naprosyn and a short burst of steroid to help with pain and swelling. Discharge Plan Triage Chief Complaint: Lower Extremity Injury ED Provider: Carolina Rich Dx/Rx/DC Orders Clinical Impression: Contusion of foot Instructions: ED Foot Contusion Prescriptions: New naproxen [Naprosyn] 500 mg tablet 500 mg PO BID PRN (Reason: pain) Qty: 10 0RF prednisone 20 mg tablet 20 mg PO BID Qty: 6 0RF No Action pindolol 10 MG tablet 5 mg PO DAILY pravastatin 40 MG tablet 80 mg PO QHS Label Comments: TAKE 1 TABLET BY MOUTH ONCE DAILY cyclobenzaprine [cyclobenzaprine] 10 MG tablet 10 mg PO TID PRN (Reason: Muscle Spasm) Qty: 20 0RF flecainide 50 mg tablet 50 mg PO DAILY Label Comments: TAKE 1 TABLET BY MOUTH TWICE DAILY cholecalciferol (vitamin D3) [Vitamin D3] 25 mcg (1,000 unit) Tablet 25 mcg PO DAILY Primary Care Provider: Chun Santana Referrals: Chun Santana DO [Primary Care Provider] - 1 Week Disposition Disposition: Home, Self Care
--- NOTE | 2022-06-05 09:45 | RAD_ITS ---
STUDY: X-RAY - LEFT FOOT CLINICAL: Female, 61 years old. Swelling and pain at base of the great toe. TECHNIQUE: 3 view(s) of the foot. COMPARISON: None. FINDINGS: There is a plantar calcaneal spur. Normal visualized subtalar, talonavicular, calcaneocuboid, tarsal and tarsometatarsal articulations. Normal metatarsi. Normal metatarsophalangeal joint of the great toe. Normal tibial and fibular sesamoid bones. Normal interphalangeal joint of the great toe. Normal phalanges of the great toe. Normal second through fifth metatarsophalangeal joints. Normal interphalangeal joints and phalanges of the lesser toes. Soft tissue swelling. RAD/Foot min 3 Views IMPRESSION: Soft tissue swelling. Plantar spur. Electronically Signed: Cayden Marroquin MD at 10:23 EDT ,
[2022-06-05] MEDS: Naproxen 500 MG Tablet PO (09:46)
== END 2022-06-05 10:46 | disposition home or self-care (01) ==
PROVIDERS: Emergency Provider Emergency Medicine; PCP Student in an Organized Health Care Education/Training Program; Visit Provider Emergency Medicine
DX: S90.32XA Contusion of left foot, initial encounter (principal); E78.00 Pure hypercholesterolemia, unspecified; Z79.52 Long term (current) use of systemic steroids; Z79.899 Other long term (current) drug therapy; Z87.891 Personal history of nicotine dependence; X58.XXXA Exposure to other specified factors, initial encounter
CPT/HCPCS: 73630; 99283

== ENCOUNTER → 2022-06-29 | Outpatient (CLI) | payer MEDICARE, SELFPAY ==
[2022-06-29 12:14] VITALS: BP 114/71; PULSE 68; RESP 16; TEMP 36.7; O2SAT 98; BMI 34.5
[2022-06-29] MEDS: 0.9% NaCl Peripheral Flush Adult/Peds IV (12:22)
[2022-06-29] MEDS: 0.9% NaCl IVPB Med Flush (250 mL) 15 ML IV (12:22)
[2022-06-29 13:11] VITALS: BP 123/71; PULSE 68
== END | disposition home or self-care (01) ==
LOC: MEDOUTP 11:51
PROVIDERS: PCP Student in an Organized Health Care Education/Training Program; Referring Provider Nurse Practitioner; Visit Provider Nurse Practitioner
DX: D50.8 Other iron deficiency anemias (principal); K90.9 Intestinal malabsorption, unspecified
CPT/HCPCS: 96365; J1756; J7050; A4216

== ENCOUNTER → 2022-07-03 | Outpatient (CLI) | payer MEDICARE, SELFPAY ==
[2022-07-03 11:52] VITALS: BP 103/63; PULSE 67; RESP 16; TEMP 36.8; O2SAT 98; BMI 34.5
[2022-07-03] MEDS: 0.9% NaCl Peripheral Flush Adult/Peds IV (12:08)
[2022-07-03] MEDS: 0.9% NaCl IVPB Med Flush (250 mL) 15 ML IV (12:09)
[2022-07-03 13:03] VITALS: BP 112/65; PULSE 68
== END | disposition home or self-care (01) ==
LOC: MEDOUTP 11:43
PROVIDERS: PCP Student in an Organized Health Care Education/Training Program; Referring Provider Nurse Practitioner; Visit Provider Nurse Practitioner
DX: D50.9 Iron deficiency anemia, unspecified (principal)
CPT/HCPCS: 96365; J1756; J7050; A4216

== ENCOUNTER → 2022-07-05 | Outpatient (CLI) | payer MEDICARE, SELFPAY ==
[2022-07-05] MEDS: 0.9% NaCl Peripheral Flush Adult/Peds IV (12:14)
[2022-07-05] MEDS: 0.9% NaCl IVPB Med Flush (250 mL) 15 ML IV (12:14)
[2022-07-05 12:21] VITALS: BP 102/63; PULSE 63; O2SAT 98
[2022-07-05 13:06] VITALS: BP 111/61; PULSE 63; RESP 16; O2SAT 97
== END | disposition home or self-care (01) ==
LOC: MEDOUTP 11:56
PROVIDERS: PCP Student in an Organized Health Care Education/Training Program; Referring Provider Nurse Practitioner; Visit Provider Nurse Practitioner
DX: D50.9 Iron deficiency anemia, unspecified (principal)
CPT/HCPCS: 96365; J1756; J7050; A4216

== ENCOUNTER → 2022-07-07 | Outpatient (CLI) | payer MEDICARE, SELFPAY ==
[2022-07-07 12:01] VITALS: BP 133/70; PULSE 61; RESP 16; TEMP 36.1; O2SAT 96; BMI 34.5
[2022-07-07] MEDS: 0.9% NaCl IVPB Med Flush (250 mL) 15 ML IV (12:16)
[2022-07-07] MEDS: 0.9% NaCl Peripheral Flush Adult/Peds IV (12:16)
== END | disposition home or self-care (01) ==
LOC: MEDOUTP 11:52
PROVIDERS: PCP Student in an Organized Health Care Education/Training Program; Referring Provider Nurse Practitioner; Visit Provider Nurse Practitioner
DX: D50.9 Iron deficiency anemia, unspecified (principal)
CPT/HCPCS: 96365; J1756; J7050; A4216

== ENCOUNTER → 2022-07-10 | Outpatient (CLI) | payer MEDICARE, SELFPAY ==
[2022-07-10 12:02] VITALS: BP 108/65; PULSE 60; RESP 16; TEMP 36.3; O2SAT 100
[2022-07-10] MEDS: 0.9% NaCl Peripheral Flush Adult/Peds IV (12:04)
[2022-07-10] MEDS: 0.9% NaCl IVPB Med Flush (250 mL) 15 ML IV (12:10)
[2022-07-10 13:00] VITALS: BP 116/58; PULSE 60; RESP 16; TEMP 35.9; O2SAT 100
== END | disposition home or self-care (01) ==
LOC: MEDOUTP 11:51
PROVIDERS: PCP Student in an Organized Health Care Education/Training Program; Referring Provider Nurse Practitioner; Visit Provider Nurse Practitioner
DX: D50.9 Iron deficiency anemia, unspecified (principal)
CPT/HCPCS: 96365; J1756; J7050; A4216